=== PATIENT | female | born 1985 | race Caucasian/White ===

== ENCOUNTER 2019-08-05 15:52 | Emergency (ER) | payer MEDICAID ==
--- NOTE | 2019-08-05 17:08 | RADIOLOGY REPORT ---
EXAMINATION: Right Knee Complete, Four or More Views EXAM DATE: 08/05/2019 4:39 PM INDICATION: osteoarthritis, pain ENCOUNTER: Initial FINDINGS: There is osteoarthritis, with osteophyte formation. There is a joint effusion. No acute abnormality. Dictated by: Carlin Allen MD on 08/05/2019 4:58 PM. .
[2019-08-05 17:13] LABS: ABSOLUTE NEUTROPHIL COUNT 6.13; BASO % 0.4 % (0-6); EOS % 5.4 % (0-6); GRAN % 57.3 % (47-80); HEMATOCRIT 45.9 % (35.0-47.0); HEMOGLOBIN 14.6 gm/dl (11.6-16.0); LYMPH % 25.9 % (16-45); MEAN CELL VOLUME 93.5 fl (81-97); MEAN CORPUSCULAR HEMOGLOBIN 29.7 pg (27-33); MEAN CORPUSCULAR HGB CONC 31.8 g/dl (32-36); MEAN PLATELET VOLUME 10.9 fl (7.4-10.4); PLATELET COUNT 299 K/uL (130-400); RED BLOOD COUNT 4.91 M/uL (3.80-5.40); RED CELL DISTRIBUTION WIDTH 14.6 % (11.5-14.5); WHITE BLOOD COUNT W/O DIFF 10.7 K/uL (4.2-12.2)
[2019-08-05] MEDS ORDERED: KETOROLAC 60 MG/2 ML VIAL IM STA (17:13)
--- NOTE | 2019-08-05 17:15 | Emergency Department Record ---
History of Present Illness - General Chief complaint: Lower Extremity Pain Stated complaint: RT LEG PAIN, CANT BEND IT Time Seen by Provider: 08/05/19 16:48 Mode of Arrival: Ambulatory - History of Present Illness Initial comments: 7 days of right knee pain and the pain is located above the patella and she denies any injuries and slight edema of suprapatellar bursa. No warmth of knee and xray negative for fractures. history of osteoarthritis of the right knee. Onset/Timin -: Days(s) Location: Right, Knee Severity scale (1-10): 8 Quality: Aching Consistency: Constant Improves with: Nothing Worsens with: Walking, Weight bearing Associated Symptoms: Denies other symptoms - Related Data Home Medications Medication Instructions Recorded Confirmed Last Taken Aspirin 325 mg PO DAILY 08/05/19 08/05/19 1 Day Ago ~08/04/19 Atorvastatin Calcium [Lipitor] 10 mg PO DAILY 08/05/19 08/05/19 1 Day Ago ~08/04/19 Levothyroxine Sodium [Synthroid] 50 mcg PO DAILY 08/05/19 08/05/19 1 Day Ago ~08/04/19 Oxycodone HCl/Acetaminophen 1 tab PO Q6H PRN 08/05/19 08/05/19 1 Day Ago [Percocet 10mg/325mg] ~08/04/19 Sertraline HCl [Zoloft] 50 mg PO DAILY 08/05/19 08/05/19 1 Day Ago ~08/04/19 Previous Rx's Medication Instructions Recorded Naproxen [Naprosyn] 500 mg PO BID #30 tablet 08/05/19 Allergies Allergy/AdvReac Type Severity Reaction Status Date / Time morphine Allergy HYPERSENSIT Verified 08/05/19 16:12 IVITY promethazine [From Phenergan] Allergy HYPERSENSIT Verified 08/05/19 16:12 IVITY Travel/Exposure Screening - Travel/Exposure Within Last 30 Days Have you traveled within the last 30 days?: No - Travel/Exposure Within Last Year Have you traveled outside the [place] in the last year?: No - Additonal Travel/Exposure Details Have you been exposed to anyone with a communicable illness?: No - Travel Symptoms Symptom Screening: None Review of Systems Reviewed: No additional complaints except as noted below Constitutional: Reports: As per HPI. Denies: Chills, Fever, Malaise, Night sweats, Weakness, Weight change Eyes: Reports: As per HPI. Denies: Eye discharge, Eye pain, Photophobia, Vision change ENT: Reports: As per HPI. Denies: Congestion, Dental pain, Ear pain, Epistaxis, Hearing loss, Throat pain Respiratory: Reports: As per HPI. Denies: Cough, Dyspnea, Hemoptysis, Stridor, Wheezes Cardiovascular: Reports: As per HPI. Denies: Arrhythmia, Chest pain, Dyspnea on exertion, Edema, Murmurs, Orthopnea, Palpitations, Paroxysmal nocturnal dyspnea, Rheumatic Fever, Syncope Endocrine: Reports: As per HPI. Denies: Fatigue, Heat or cold intolerance, Polydipsia, Polyuria Gastrointestinal: Reports: As per HPI. Denies: Abdominal pain, Constipation, Diarrhea, Hematemesis, Hematochezia, Melena, Nausea, Vomiting Genitourinary: Reports: As per HPI. Denies: Abnormal menses, Discharge, Dyspareunia, Dysuria, Frequency, Hematuria, Incontinence, Retention, Urgency Musculoskeletal: Reports: As per HPI, Arthralgia (right knee). Denies: Back pain, Gout, Joint swelling, Myalgia, Neck pain Skin: Reports: As per HPI. Denies: Bruising, Change in color, Change in hair/nails, Lesions, Pruritus, Rash Neurological: Reports: As per HPI. Denies: Abnormal gait, Confusion, Headache, Numbness, Paresthesias, Seizure, Tingling, Tremors, Vertigo, Weakness Psychiatric: Reports: As per HPI. Denies: Anxiety, Auditory hallucinations, Depression, Homicidal thoughts, Suicidal thoughts, Visual hallucinations Hematological/Lymphatic: Reports: As per HPI. Denies: Anemia, Blood Clots, Easy bleeding, Easy bruising, Swollen glands Past Medical History - SOCIAL HISTORY Smoking Status: Former smoker Alcohol Use: Rare Drug Use: None - RESPIRATORY Hx Respiratory Disorders: Yes Hx COPD: Yes (beginning) - CARDIOVASCULAR Hx Cardio Disorders: Yes - NEURO Hx Neuro Disorders: Yes Hx CVA: Yes (2013) - GI Hx GI Disorders: No - Hx Genitourinary Disorders: No - ENDOCRINE Hx Endocrine Disorders: Yes Hx Diabetes: Yes (watching) Hx Thyroid Disease: Yes (hupo) - MUSCULOSKELETAL Hx Musculoskeletal Disorders: Yes Hx Arthritis: Yes (oeste[place]) - PSYCH Hx Psych Problems: Yes Hx Anxiety: Yes Hx Depression: Yes - HEMATOLOGY/ONCOLOGY Hx Hematology/Oncology Disorders: No Family Medical History Any Significant Family History?: Yes Family Hx Comment (NOT TO BE USED IN PLACE OF ITEMS BELOW): denies Physical Exam - General General Appearance: Alert, Oriented x3, Cooperative, No acute distress - Head Head exam: Normal inspection - Eye Eye exam: Normal appearance, PERRL Pupils: Normal accommodation - ENT ENT exam: Normal exam, Mucous membranes moist, Normal external ear exam, Normal orophraynx, TM's normal bilaterally Ear exam: Normal external inspection. negative: External canal tenderness Nasal Exam: Normal inspection. negative: Discharge, Sinus tenderness Mouth exam: Normal external inspection, Tongue normal Teeth exam: Normal inspection. negative: Dental caries Throat exam: Normal inspection. negative: Tonsillar erythema, Tonsillar exudate - Neck Neck exam: Normal inspection, Full ROM. negative: Tenderness - Respiratory Respiratory exam: Normal lung sounds bilaterally. negative: Respiratory distress - Cardiovascular Cardiovascular Exam: Regular rate, Normal rhythm, Normal heart sounds - GI/Abdominal GI/Abdominal exam: Soft, Normal bowel sounds. negative: Tenderness - Rectal Rectal exam: Deferred - exam: Deferred - Extremities Extremities exam: Normal capillary refill, Tenderness (tenderness above the patella) - Back Back exam: Reports: Normal inspection, Full ROM. Denies: Muscle spasm, Rash noted, Tenderness - Neurological Neurological exam: Alert, Normal gait, Oriented X3, Reflexes normal - Psychiatric Psychiatric exam: Normal affect, Normal mood - Skin Skin exam: Dry, Intact, Normal color, Warm Course Vital Signs 08/05/19 16:01 Temperature 98.1 F Pulse Rate 66 Respiratory 18 Rate Blood Pressure 147/84 Pulse Ox 100 Medical Decision Making - Data Complexity MDM Data: Labs Ordered and/or Reviewed, X-Ray Ordered and/or Reviewed (neg for fractures) - Lab Data Result diagrams: 08/05/19 17:00 Disposition Clinical Impression: Knee bursitis Qualifiers: Knee bursitis location: prepatellar bursitis Laterality: right Qualified Code(s): M70.41 - Prepatellar bursitis, right knee Disposition: Home, Self-Care Condition: (1) Good Instructions: Knee Bursitis (ED) Additional Instructions: follow up with family Dr in 3 days Prescriptions: Naproxen [Naprosyn] 500 mg PO BID #30 tablet Forms: Patient Portal Access Time of Disposition: 17:21 Quality - Quality Measures Quality Measures: N/A - Blood Pressure Screening Does Patient Have Any of the Following: No Blood Pressure Classification: Pre-Hypertensive BP Reading Systolic Measurement: 147 Diastolic Measurement: 84 Screening for High Blood Pressure: < Pre-Hypertensive BP, F/U Documented > [[id number]] Pre-Hypertensive Follow-up Interventions: Referral to alternative/primary care provider.
[2019-08-05 17:32] LABS: C-REACTIVE PROTEIN 0.52 mg/dL (<0.5)
== END 2019-08-05 18:06 | disposition home or self-care (01) ==
LOC: ER 15:52
DX: M70.41 Prepatellar bursitis, right knee (principal); J44.9 Chronic obstructive pulmonary disease, unspecified; Z87.891 Personal history of nicotine dependence; Z86.73 Personal history of transient ischemic attack (TIA), and cerebral infarction without residual deficits
CPT/HCPCS: 84550; 85025; 86140; 96372; 99284; J1885